=== PATIENT | female | born 1985 | race Two or more races ===

== ENCOUNTER 2019-01-20 22:07 | Emergency (ER) | payer OTHER ==
[~2019-01-20] VITALS: Ht 177.8 cm; Wt 71.7 kg
[2019-01-20] MEDS ORDERED: IBUP-1096 PO (22:18)
--- NOTE | 2019-01-20 22:20 | NUR ---
Patient walked into ER c/o throat itching and vaginal itching after having unprotected sex yesterday.
[2019-01-20] MEDS ORDERED: DOXYCYCLINE HYCLATE 100 MG TABLET ONE (22:42)
[2019-01-20] MEDS ORDERED: LIDOCAINE HCL 1% 20 ML VIAL ONE (22:42)
[2019-01-20] MEDS ORDERED: CEFTRIAXONE 1 G VIAL ONE (22:42)
[2019-01-20] MEDS ORDERED: DOXYCYCLINE HYCLATE 100 MG TABLET PO ONE (22:45)
[2019-01-20] MEDS ORDERED: CEFTRIAXONE 1 G VIAL IM ONE (22:45)
--- NOTE | 2019-01-20 22:54 | NUR ---
Patient discharged to home in stable conditon. Written and verbal after care instructions given. Patient verbalizes understanding of instructions. Walked out of ER with no distress noted
[2019-01-20 22:57] VITALS: BP 118/70
== END 2019-01-20 22:57 | disposition home or self-care (01) ==
LOC: ER 22:11
DX: J02.9 Acute pharyngitis, unspecified (principal); R05 Cough; N89.8 Other specified noninflammatory disorders of vagina; Z79.1 Long term (current) use of non-steroidal anti-inflammatories (NSAID)
CPT/HCPCS: 96372; 99283; J0696; J3490; A4663

== ENCOUNTER 2019-01-26 15:50 | Emergency (ER) | payer OTHER ==
[~2019-01-26] VITALS: Ht 177.8 cm; Wt 71.7 kg
[~2019-01-26 15:50] MED LIST: IBUP-1096 PO
[2019-01-26] MEDS ORDERED: AZITHROMYCIN 500 MG VIAL IV ONE (16:38)
[2019-01-26] MEDS ORDERED: CEFTRIAXONE 1 G VIAL ONE (16:39)
[2019-01-26] MEDS ORDERED: AZITHROMYCIN 250 MG TABLET ONE (16:39)
[2019-01-26] MEDS ORDERED: LIDOCAINE HCL 1% 20 ML VIAL ONE (16:42)
[2019-01-26] MEDS: AZITHROMYCIN 250 MG TABLET PO ONE (16:46)
[2019-01-26] MEDS: CEFTRIAXONE 1 G VIAL IM ONE (16:46)
--- NOTE | 2019-01-26 16:48 | NUR ---
PATIENT WAS SEEN BY MD. MEDICATION GIVEN ORDERED. DC AND FOLLOW UP INSTRUCTIONS GIVEN AND EXPLAINED TO PATIENT WHO STATES SHE UNDERSTANDS ALL INSTRUCTIONS.
== END 2019-01-26 16:54 | disposition home or self-care (01) ==
LOC: ER 15:50
DX: A64 Unspecified sexually transmitted disease (principal); J02.9 Acute pharyngitis, unspecified; Z79.1 Long term (current) use of non-steroidal anti-inflammatories (NSAID)
CPT/HCPCS: 96372; 99283; J0696; J3490; A4663; J0456; Q0144

== ENCOUNTER 2019-02-06 23:54 | Emergency (ER) | payer OTHER ==
[~2019-02-06] VITALS: Ht 177.8 cm; Wt 71.4 kg
[2019-02-07] MEDS ORDERED: AZITHROMYCIN 250 MG TABLET PO ONE (00:15)
[2019-02-07] MEDS ORDERED: CEFTRIAXONE 1 G VIAL IM ONE (00:15)
[2019-02-07] MEDS ORDERED: AZITHROMYCIN 250 MG TABLET ONE (00:25)
[2019-02-07] MEDS ORDERED: LIDOCAINE HCL 1% 20 ML VIAL ONE (00:25)
[2019-02-07] MEDS ORDERED: CEFTRIAXONE 1 G VIAL ONE (00:25)
[2019-02-07 00:49] VITALS: BP 118/78
--- NOTE | 2019-02-07 00:49 | NUR ---
Patient discharged to home in stable conditon. Written and verbal after care instructions given. Patient verbalizes understanding of instructions.
[2019-02-07 01:10] LABS: *BILIRUBIN,URIN NEGATIVE (NEGATIVE); *CLARITY,URINE SLIGHTLY CLOUDY (CLEAR); *COLOR,URINE YELLOW (YELLOW); *KETONES,URINE NEGATIVE (NEGATIVE); *UROBILINOGEN,URINE 0.2 E.U./dl (NORMAL); LEUKOCYTE ESTERASE ,URINE 1+ (NEGATIVE); NITRITE, URINE NEGATIVE (NEGATIVE); UGLUCOSE NEGATIVE (NEGATIVE)
[2019-02-07 01:12] LABS: *BLOOD, URINE TRACE (NEGATIVE)
[2019-02-07 01:37] LABS: *URINE HCG, QUAL NEGATIVE (NEGATIVE); BACTERIA,URINE NONE SEEN /HPF (NONE SEEN); RBC,URINE 0-3 /HPF (0-3); SQUAMOUS EPITHELIAL CELL,UR FEW /HPF (NONE SEEN)
== END 2019-02-07 01:47 | disposition home or self-care (01) ==
LOC: ER 23:59
DX: Z20.2 Contact with and (suspected) exposure to infections with a predominantly sexual mode of transmission (principal); Z79.1 Long term (current) use of non-steroidal anti-inflammatories (NSAID)
CPT/HCPCS: 81000; 81001; 84703; 87086; 96372; 99283; J0696; J3490; A4663; Q0144

== ENCOUNTER 2019-02-10 01:38 | Emergency (ER) | payer OTHER ==
[~2019-02-10] VITALS: Ht 177.8 cm; Wt 72.1 kg
[2019-02-10] MEDS ORDERED: CEFTRIAXONE 500 MG VIAL IM ONE (02:00)
[2019-02-10] MEDS ORDERED: AZITHROMYCIN 250 MG TABLET PO ONE (02:00)
[2019-02-10] MEDS ORDERED: AZITHROMYCIN 250 MG TABLET ONE (02:05)
[2019-02-10] MEDS ORDERED: CEFTRIAXONE 500 MG VIAL ONE (02:05)
[2019-02-10] MEDS ORDERED: LIDOCAINE HCL 1% 20 ML VIAL ONE (02:06)
[2019-02-10 02:23] LABS: *BILIRUBIN,URIN NEGATIVE (NEGATIVE); *BLOOD, URINE NEGATIVE (NEGATIVE); *CLARITY,URINE CLEAR (CLEAR); *COLOR,URINE YELLOW (YELLOW); *KETONES,URINE NEGATIVE (NEGATIVE); *UROBILINOGEN,URINE 0.2 E.U./dl (NORMAL); LEUKOCYTE ESTERASE ,URINE TRACE (NEGATIVE); NITRITE, URINE NEGATIVE (NEGATIVE); UGLUCOSE NEGATIVE (NEGATIVE)
[2019-02-10 02:28] LABS: *URINE HCG, QUAL NEGATIVE (NEGATIVE)
[2019-02-10 02:31] LABS: BACTERIA,URINE FEW /HPF (NONE SEEN); MUCUS,URINE FEW /LPF (0-FEW); RBC,URINE NONE SEEN /HPF (0-3); SQUAMOUS EPITHELIAL CELL,UR FEW /HPF (NONE SEEN)
[2019-02-10 02:46] VITALS: BP 115/76
--- NOTE | 2019-02-10 02:58 | NUR ---
Patient discharged to home in stable conditon. Written and verbal after care instructions given. Patient verbalizes understanding of instructions. WALKED OUT OF ER WITH NO DISTRESS NOTED
[2019-02-12 07:10] LABS: *GC NAA Negative (Negative); *TRIC.VAG. NAA Negative (Negative)
== END 2019-02-10 03:06 | disposition home or self-care (01) ==
LOC: ER 01:42
DX: Z20.2 Contact with and (suspected) exposure to infections with a predominantly sexual mode of transmission (principal); Z79.1 Long term (current) use of non-steroidal anti-inflammatories (NSAID)
CPT/HCPCS: 81000; 81001; 84703; 87491; 96372; 99283; J0696; J3490; A4663; Q0144

== ENCOUNTER 2019-04-09 15:26 | Emergency (ER) | payer OTHER ==
[~2019-04-09] VITALS: Ht 170.2 cm; Wt 52.6 kg
[2019-04-09 16:13] LABS: *URINE HCG, QUAL NEGATIVE (NEGATIVE)
--- NOTE | 2019-04-09 16:42 | NUR ---
PATIENT IS IN ROOM 5. PELVIC EXAM AND CULTURES DONE BY DR CLOES WITH ME AT BEDSIDE.
[2019-04-09] MEDS ORDERED: CEFTRIAXONE 500 MG VIAL IM ONE (17:00)
[2019-04-09] MEDS ORDERED: AZITHROMYCIN 250 MG TABLET PO ONE (17:00)
[2019-04-09] MEDS ORDERED: LIDOCAINE HCL 1% 20 ML VIAL ONE (17:15)
[2019-04-09] MEDS ORDERED: AZITHROMYCIN 250 MG TABLET ONE (17:15)
[2019-04-09] MEDS ORDERED: CEFTRIAXONE 500 MG VIAL ONE (17:16)
--- NOTE | 2019-04-09 17:17 | NUR ---
Medications given as ordered. DC, RX AND FOLLOW UP INSTRUCTIONS GIVEN AND EXPLAINED TO PATIENT WHO STATES SHE UNDERSTANDS ALL INSTRUCTIONS.
--- NOTE | 2019-04-09 17:17 | NUR ---
Rocephin 250 mg IM given as ordered by Dr. Miller, site: left glut.
== END 2019-04-09 17:20 | disposition home or self-care (01) ==
LOC: ER 15:31
DX: N89.8 Other specified noninflammatory disorders of vagina (principal); Z79.1 Long term (current) use of non-steroidal anti-inflammatories (NSAID)
CPT/HCPCS: 84703; 87070; 87081; 87110; 87210; 96372; 99283; J0696; J3490; A4663; Q0144

== ENCOUNTER 2019-09-01 13:14 | Emergency (ER) | payer OTHER ==
[~2019-09-01] VITALS: Ht 170.2 cm; Wt 76.2 kg
[2019-09-01 14:24] LABS: *BILIRUBIN,URIN NEGATIVE (NEGATIVE); *BLOOD, URINE NEGATIVE (NEGATIVE); *CLARITY,URINE CLEAR (CLEAR); *COLOR,URINE YELLOW (YELLOW); *KETONES,URINE 1+ (NEGATIVE); *UROBILINOGEN,URINE 0.2 E.U./dl (NORMAL); LEUKOCYTE ESTERASE ,URINE NEGATIVE (NEGATIVE); NITRITE, URINE NEGATIVE (NEGATIVE); UGLUCOSE NEGATIVE (NEGATIVE)
[2019-09-01 14:26] LABS: *URINE HCG, QUAL NEGATIVE (NEGATIVE)
[2019-09-01 14:28] LABS: BACTERIA,URINE FEW /HPF (NONE SEEN); RBC,URINE 0-3 /HPF (0-3); SQUAMOUS EPITHELIAL CELL,UR MODERATE /HPF (NONE SEEN); WBC,URINE 0-3 /HPF (0-3)
[2019-09-01] MEDS ORDERED: CEFTRIAXONE 500 MG VIAL IM ONE (14:30)
[2019-09-01] MEDS ORDERED: AZITHROMYCIN 250 MG TABLET PO ONE (14:30)
[2019-09-01] MEDS ORDERED: CEFTRIAXONE 500 MG VIAL ONE (14:48)
[2019-09-01] MEDS ORDERED: LIDOCAINE HCL 1% 20 ML VIAL ONE (14:48)
[2019-09-01] MEDS ORDERED: AZITHROMYCIN 250 MG TABLET ONE (14:51)
[2019-09-01] MEDS ORDERED: ALBUTEROL SULFATE 2.5 MG/3 ML NEBU ONE (15:03)
[2019-09-01] MEDS ORDERED: ALBUTEROL SULFATE 2.5 MG/3 ML NEBU NEB ONE (15:15)
--- NOTE | 2019-09-01 15:38 | NUR ---
Patient discharged to home in stable conditon. Written and verbal after care instructions given. Patient verbalizes understanding of instructions.
[2019-09-01 15:40] VITALS: BP 121/68
[2019-09-03 08:06] LABS: *GC NAA Negative (Negative); *TRIC.VAG. NAA Negative (Negative)
== END 2019-09-01 15:45 | disposition home or self-care (01) ==
LOC: ER 13:14
DX: Z20.2 Contact with and (suspected) exposure to infections with a predominantly sexual mode of transmission (principal); B34.9 Viral infection, unspecified; J45.909 Unspecified asthma, uncomplicated; Z79.1 Long term (current) use of non-steroidal anti-inflammatories (NSAID)
CPT/HCPCS: 71045; 81000; 81001; 84703; 87491; 93005; 94640; 96372; 99285; J0696; J3490; A4663; Q0144

== ENCOUNTER 2020-09-22 15:23 | Emergency (ER) | payer SELFPAY ==
[~2020-09-22] VITALS: Ht 177.8 cm; Wt 72.6 kg
--- NOTE | 2020-09-22 15:42 | NUR ---
at bedside for assessment
[2020-09-22] MEDS ORDERED: CEFTRIAXONE 500 MG VIAL IM ONE (16:00)
[2020-09-22] MEDS ORDERED: PENICILLIN G BENZATHINE 2.4 MMU/4 ML DISP.SYRIN IM ONE ×2 (16:00→16:09)
[2020-09-22] MEDS ORDERED: CEFTRIAXONE 500 MG VIAL ONE (16:09)
[2020-09-22] MEDS ORDERED: LIDOCAINE HCL 2% 20 ML VIAL ONE (16:10)
[2020-09-22 16:16] LABS: *URINE HCG, QUAL NEGATIVE (NEGATIVE)
[2020-09-22] MEDS ORDERED: FLUCONAZOLE 100 MG TABLET PO ONE (16:45)
[2020-09-22] MEDS ORDERED: FLUCONAZOLE 100 MG TABLET ONE (16:47)
[2020-09-22] MEDS ORDERED: DOXY100C41 PO (16:54)
--- NOTE | 2020-09-22 16:58 | NUR ---
Patient discharged to home in stable condition. no signs of acute distress noted, took all belongings. All needs met.Written and verbal after care instructions given. Patient verbalizes understanding of instructions. Stressed follow up or return to ER for worsening s/s.
[2020-09-24] MEDS ORDERED: LIDOCAINE HCL 1% 20 ML VIAL ONE (18:46)
[2020-09-24] MEDS ORDERED: CEFTRIAXONE 1 G VIAL ONE (18:46)
[2020-09-24] MEDS ORDERED: SULFAMETH/TRIMETH 800/160 MG TABLET ONE (18:47)
[2020-09-24 22:06] LABS: *GC NAA Negative (Negative); *TRIC.VAG. NAA Negative (Negative)
== END 2020-09-22 17:01 | disposition home or self-care (01) ==
LOC: ER 15:31
DX: N76.0 Acute vaginitis (principal); Z20.2 Contact with and (suspected) exposure to infections with a predominantly sexual mode of transmission; J45.909 Unspecified asthma, uncomplicated
CPT/HCPCS: 36415; 84703; 86592; 87491; 96372 ×2; 99284; J0696; J3490; A4663

== ENCOUNTER 2020-11-21 19:45 | Emergency (ER) | payer SELFPAY ==
[~2020-11-21] VITALS: Ht 177.8 cm; Wt 75.4 kg
[~2020-11-21 19:45] MED LIST changes: +DOXY100C41 PO
--- NOTE | 2020-11-21 21:00 | NUR ---
PATIENT STATES HER BOYFRIEND HAS AN STD AND STATES SHE HAS DYSURIA FOR 2 DAYS WITH NO DISCHARGE.
[2020-11-21 21:13] LABS: BASOPHILS % (AUTO) 0.4 % (0.0-2.0); EOSINOPHILS % (AUTO) 0.3 % (0.0-7.0); HEMATOCRIT 39.1 % (31.2-41.9); HEMOGLOBIN 13.1 g/dL (10.9-14.3); LYMPHOCYTES % (AUTO) 31.9 % (20.5-51.5); MEAN CORPUSCULAR HEMOGLOBIN 30.7 uug (24.7-32.8); MEAN CORPUSCULAR HGB CONC 33 g/dL (32.3-35.6); MEAN CORPUSCULAR VOLUME 91.8 fL (75.5-95.3); MONOCYTES # (AUTO) 0.7 K/uL (2.0-10.0); MONOCYTES % (AUTO) 11.6 % (0.0-11.0); NEUTROPHILS # (AUTO) 3.6 K/uL (1.8-8.9); NEUTROPHILS % (AUTO) 55.8 % (38.5-71.5); PLATELET COUNT (AUTO) 265 K/uL (179-408); RED BLOOD CELL COUNT(AUTO) 4.26 MIL/uL (3.63-4.92); WHITE BLOOD COUNT (AUTO) 6.4 K/uL (3.8-11.8)
[2020-11-21] MEDS ORDERED: PENICILLIN G BENZATHINE 2.4 MMU/4 ML DISP.SYRIN IM ONE ×2 (23:00→23:11)
--- NOTE | 2020-11-21 23:38 | NUR ---
Patient discharged to home in stable condition. Written and verbal after care instructions given. Patient verbalizes understanding of instructions. Stressed follow up or return to ER for worsening s/s.
[2020-11-21 23:39] VITALS: BP 128/72
== END 2020-11-21 23:40 | disposition home or self-care (01) ==
LOC: ER 19:45
DX: A64 Unspecified sexually transmitted disease (principal); N89.8 Other specified noninflammatory disorders of vagina; R21 Rash and other nonspecific skin eruption; J45.909 Unspecified asthma, uncomplicated
CPT/HCPCS: J0561 ×6; 85025; 86592; 87491; A4663

== ENCOUNTER 2021-04-09 04:07 | Emergency (ER) | payer OTHER ==
[~2021-04-09] VITALS: Ht 177.8 cm; Wt 77.1 kg
[~2021-04-09 04:07] MED LIST changes: +DOXY-326 PO; -DOXY100C41 PO
--- NOTE | 2021-04-09 04:49 | NUR ---
DR GRESHAM AT BEDSIDE FOR MSE.
--- NOTE | 2021-04-09 04:50 | NUR ---
Patient c/o dysuria, rash on right thigh and itchiness that started 3 days ago after having unprotected intercourse with partner.
[2021-04-09] MEDS ORDERED: CEFTRIAXONE 500 MG VIAL IM ONE (05:00)
[2021-04-09] MEDS ORDERED: DOXYCYCLINE HYCLATE 100 MG TABLET PO ONE (05:00)
[2021-04-09] MEDS ORDERED: DOXY-326 PO (05:05)
[2021-04-09] MEDS ORDERED: HYDR-500 GT (05:05)
[2021-04-09] MEDS ORDERED: CEFTRIAXONE 500 MG VIAL ONE (05:09)
[2021-04-09] MEDS ORDERED: DOXYCYCLINE HYCLATE 100 MG TABLET ONE (05:09)
[2021-04-09] MEDS ORDERED: LIDOCAINE HCL 1% 20 ML VIAL ONE (05:10)
--- NOTE | 2021-04-09 05:19 | NUR ---
Patient discharged to home in stable condition. Written and verbal after care instructions given. Patient verbalizes understanding of instructions. Stressed follow up or return to ER for worsening s/s. All belongings with patient.
[2021-04-09 05:28] VITALS: BP 118/64
== END 2021-04-09 05:20 | disposition home or self-care (01) ==
LOC: ER 04:13
DX: Z11.3 Encounter for screening for infections with a predominantly sexual mode of transmission (principal); Z20.2 Contact with and (suspected) exposure to infections with a predominantly sexual mode of transmission; J45.909 Unspecified asthma, uncomplicated
CPT/HCPCS: 96372; 99283; J0696; J3490; A4663

== ENCOUNTER 2021-04-14 05:07 | Emergency (ER) | payer OTHER ==
[~2021-04-14] VITALS: Ht 170.2 cm; Wt 82.6 kg
[~2021-04-14 05:07] MED LIST changes: +HYDR-500 GT
--- NOTE | 2021-04-14 05:19 | NUR ---
Dr. Rose at bedside for MSE.
[2021-04-14 06:00] LABS: *BILIRUBIN,URIN NEGATIVE (NEGATIVE); *BLOOD, URINE NEGATIVE (NEGATIVE); *CLARITY,URINE CLEAR (CLEAR); *COLOR,URINE YELLOW (YELLOW); *KETONES,URINE NEGATIVE (NEGATIVE); *UROBILINOGEN,URINE 0.2 E.U./dl (NORMAL); LEUKOCYTE ESTERASE ,URINE NEGATIVE (NEGATIVE); NITRITE, URINE NEGATIVE (NEGATIVE); PH,URINE 5.5 (5.0-8.0); UGLUCOSE NEGATIVE (NEGATIVE)
[2021-04-14] MEDS ORDERED: PENICILLIN G BENZATHINE 2.4 MMU/4 ML DISP.SYRIN IM ONE ×2 (06:00→06:04)
[2021-04-14] MEDS ORDERED: HYDR-3980 PO (06:19)
[2021-04-14 06:35] LABS: HEMATOCRIT 36.5 % (31.2-41.9); MEAN CORPUSCULAR HEMOGLOBIN 31.1 uug (24.7-32.8); MEAN CORPUSCULAR VOLUME 92.8 fL (75.5-95.3); PLATELET COUNT (AUTO) 275 K/uL (179-408)
--- NOTE | 2021-04-14 06:46 | NUR ---
Patient discharged to home in stable condition. Written and verbal after care instructions given. Patient verbalizes understanding of instructions. Stressed follow up or return to ER for worsening s/s. Pt walks with steady gait. No signs of distress. Vitals stable. All belongings taken with patient. Pt. refused to sign discharge paperwork.
[2021-04-14 06:48] VITALS: BP 110/56
--- NOTE | 2021-04-14 06:56 | NUR ---
I educated pt. to take prescription to pharmacy. While cleaning the room I found the patient's paper [facility] prescription in trash. Prescription moved to be in patients chart.
== END 2021-04-14 06:50 | disposition home or self-care (01) ==
LOC: ER 05:08
DX: R10.2 Pelvic and perineal pain (principal); Z20.2 Contact with and (suspected) exposure to infections with a predominantly sexual mode of transmission; Z72.51 High risk heterosexual behavior; J45.909 Unspecified asthma, uncomplicated
CPT/HCPCS: J0561 ×7; 85025; 86592; 87491; A4663

== ENCOUNTER 2021-06-15 02:18 | Emergency (ER) | payer OTHER ==
[~2021-06-15] VITALS: Ht 177.8 cm; Wt 79.1 kg
[~2021-06-15 02:18] MED LIST changes: +HYDR-3980 PO
[2021-06-15] MEDS ORDERED: CEFTRIAXONE 500 MG VIAL IM ONE (02:30)
[2021-06-15] MEDS ORDERED: PENICILLIN G BENZATHINE 2.4 MMU/4 ML DISP.SYRIN IM ONE ×2 (02:30→02:43)
[2021-06-15] MEDS ORDERED: AZITHROMYCIN 250 MG TABLET PO ONE (02:30)
[2021-06-15] MEDS ORDERED: AZITHROMYCIN 250 MG TABLET ONE (02:43)
[2021-06-15] MEDS ORDERED: CEFTRIAXONE 500 MG VIAL ONE (02:43)
[2021-06-15 02:58] VITALS: BP 128/72
== END 2021-06-15 03:00 | disposition home or self-care (01) ==
LOC: ER 02:22
DX: Z29.8 Encounter for other specified prophylactic measures (principal); Z77.21 Contact with and (suspected) exposure to potentially hazardous body fluids; J45.909 Unspecified asthma, uncomplicated
CPT/HCPCS: 96372 ×2; 99284; J0561; J0696; A4663; Q0144

== ENCOUNTER 2021-10-10 16:49 | Emergency (ER) | payer OTHER ==
[~2021-10-10] VITALS: Ht 177.8 cm; Wt 81.6 kg
--- NOTE | 2021-10-10 22:20 | NUR ---
PT PLACED IN ROOM 5A.
--- NOTE | 2021-10-10 22:22 | NUR ---
Dr. Rose at bedside, MSE in progress.
[2021-10-10 22:57] LABS: HEMATOCRIT 29.9 % (31.2-41.9); MEAN CORPUSCULAR HEMOGLOBIN 30.6 uug (24.7-32.8); MEAN CORPUSCULAR VOLUME 91.3 fL (75.5-95.3); PLATELET COUNT (AUTO) 263 K/uL (179-408)
[2021-10-10] MEDS ORDERED: FLUC150T PO (23:15)
[2021-10-10] MEDS ORDERED: PENICILLIN G BENZATHINE 2.4 MMU/4 ML DISP.SYRIN IM ONE (23:20)
[2021-10-10] MEDS ORDERED: CEFTRIAXONE 1 G VIAL ONE (23:21)
[2021-10-10] MEDS ORDERED: AZITHROMYCIN 250 MG TABLET ONE (23:22)
[2021-10-10] MEDS: PENICILLIN G BENZATHINE 2.4 MMU/4 ML DISP.SYRIN IM ONE (23:28)
[2021-10-10] MEDS: CEFTRIAXONE 1 G VIAL IM ONE (23:28)
[2021-10-10] MEDS: AZITHROMYCIN 250 MG TABLET PO ONE (23:28)
--- NOTE | 2021-10-10 23:49 | NUR ---
Patient discharged to home in stable condition. Written and verbal after care instructions given. Patient verbalizes understanding of instructions. Stressed follow up or return to ER for worsening s/s.pt ambulated with steady gait. denies pain. no sob. no chest pain. AOx4
[2021-10-11 00:13] VITALS: BP 121/60
== END 2021-10-10 23:55 | disposition home or self-care (01) ==
LOC: ER 16:50
DX: O98.312 Other infections with a predominantly sexual mode of transmission complicating pregnancy, second trimester (principal); Z3A.00 Weeks of gestation of pregnancy not specified; Z20.2 Contact with and (suspected) exposure to infections with a predominantly sexual mode of transmission; O99.512 Diseases of the respiratory system complicating pregnancy, second trimester; J45.909 Unspecified asthma, uncomplicated
CPT/HCPCS: 36415; 85025; 86592; 96372 ×2; 99284; J0561; J0696; J3490; A4663; Q0144

== ENCOUNTER 2021-10-12 14:38 | Emergency (ER) | payer OTHER ==
[~2021-10-12] VITALS: Ht 177.8 cm; Wt 81.6 kg
[~2021-10-12 14:38] MED LIST changes: +FLUC150T PO
--- NOTE | 2021-10-12 15:10 | NUR ---
Pt states she is approx 6 months (states LMP 03/24/21) and has not seen a OBGYN or had any care. spoke with the pt in length and offered transfer to a OBGYN facility (for higher level of care) but the patient refused. Patient also refused pelvic exam.
[2021-10-12 15:12] LABS: *BILIRUBIN,URIN 1+ (NEGATIVE); *BLOOD, URINE NEGATIVE (NEGATIVE); *CLARITY,URINE CLEAR (CLEAR); *COLOR,URINE YELLOW (YELLOW); *KETONES,URINE TRACE (NEGATIVE); LEUKOCYTE ESTERASE ,URINE NEGATIVE (NEGATIVE); NITRITE, URINE NEGATIVE (NEGATIVE); UGLUCOSE NEGATIVE (NEGATIVE)
--- NOTE | 2021-10-12 15:14 | NUR ---
Laura stated she was diagnosed with UTI 2 months ago and was prescribed antibiotics but she didnt finished taking the medication.
--- NOTE | 2021-10-12 15:15 | NUR ---
MD at bedside, medical screening exam in process.
--- NOTE | 2021-10-12 15:17 | NUR ---
UA collected and sent to lab.
--- NOTE | 2021-10-12 15:19 | NUR ---
Patient refused wet mount test, explained the risks and benefits of not performing the test.
[2021-10-12 15:28] LABS: HEMATOCRIT 30.4 % (31.2-41.9); MEAN CORPUSCULAR HEMOGLOBIN 30.8 uug (24.7-32.8); MEAN CORPUSCULAR VOLUME 91.6 fL (75.5-95.3); PLATELET COUNT (AUTO) 267 K/uL (179-408)
[2021-10-12 15:29] LABS: CARBON DIOXIDE 25 mmol/L (21-32); CHLORIDE 104 mmol/L (98-107); CREATININE 0.8 mg/dL (0.6-1.3); GLUCOSE 107 mg/dL (74-106); POTASSIUM 3.5 mmol/L (3.5-5.1); UREA NITROGEN, BLOOD 10 mg/dL (7-18)
[2021-10-12 15:34] LABS: *AMPHETAMINE, URINE NEGATIVE (NEGATIVE); *CANNABINOID, URINE NEGATIVE (NEGATIVE); *COCCAINE, URINE NEGATIVE (NEGATIVE); *OPIATE, URINE NEGATIVE (NEGATIVE); *PHENCYCLIDINE SCREEN,URINE NEGATIVE (NEGATIVE)
[2021-10-12 15:35] LABS: ALANINE AMINOTRANSFERASE 13 U/L (14-59); ALKALINE PHOSPHATASE 98 U/L (50-136); ASPARTATE AMINOTRANSFERASE 11 U/L (15-37); BILIRUBIN,DIRECT < 0.1 mg/dL (0.0-0.2); BILIRUBIN,TOTAL 0.2 mg/dL (0.2-1.0); TOTAL PROTEIN, SERUM 6.6 g/dL (6.4-8.2)
[2021-10-12] MEDS ORDERED: PERM60CR4 TP (15:54)
[2021-10-12] MEDS ORDERED: ACET-2154 PO (15:54)
[2021-10-12] MEDS ORDERED: CEPH500C2 PO (15:54)
[2021-10-12 16:03] VITALS: BP 121/80
--- NOTE | 2021-10-12 16:04 | NUR ---
Patient discharged to home in stable condition. Written and verbal after care instructions given. Patient verbalizes understanding of instructions. Stressed follow up or return to ER for worsening s/s. Re emphasized the importance of pre exam and completing the antibiotics as prescribed.
[2021-10-12 17:19] LABS: BACTERIA,URINE FEW /HPF (NONE SEEN); RBC,URINE 0-3 /HPF (0-3); SQUAMOUS EPITHELIAL CELL,UR FEW /HPF (NONE SEEN); URINE AMORPHOUS URATE MODERATE /HPF; WBC,URINE 0-3 /HPF (0-3); YEAST,URINE BUDDING YEAST /HPF (NONE SEEN)
== END 2021-10-12 16:06 | disposition home or self-care (01) ==
LOC: ER 14:38
DX: R30.0 Dysuria (principal); O99.019 Anemia complicating pregnancy, unspecified trimester; J45.909 Unspecified asthma, uncomplicated; D64.9 Anemia, unspecified
CPT/HCPCS: 36415; 85025; 87086; A4663

== ENCOUNTER 2022-02-06 16:07 | Emergency (ER) | payer MEDICAID, OTHER ==
[~2022-02-06] VITALS: Ht 167.6 cm; Wt 74.8 kg
[~2022-02-06 16:07] MED LIST changes: +ACET-2154 PO; +CEPH500C2 PO; +PERM60CR4 TP
--- NOTE | 2022-02-06 16:15 | NUR ---
Dr Noonan at the bedside for MSE.
[2022-02-06] MEDS ORDERED: PENICILLIN G BENZATHINE 2.4 MMU/4 ML DISP.SYRIN IM ONE (16:30)
[2022-02-06] MEDS ORDERED: ALBU18HF2 INH (17:04)
[2022-02-06 17:16] VITALS: BP 100/66
== END 2022-02-06 17:16 | disposition home or self-care (01) ==
LOC: ER 16:07
DX: Z20.2 Contact with and (suspected) exposure to infections with a predominantly sexual mode of transmission (principal); J45.909 Unspecified asthma, uncomplicated
CPT/HCPCS: 99283; 96372; J0561; A4663

== ENCOUNTER 2023-02-11 09:14 | Emergency (ER) | payer MEDICAID, OTHER ==
[~2023-02-11] VITALS: Ht 177.8 cm; Wt 74.8 kg
[2023-02-11 09:14] VITALS: O2SAT 100
[~2023-02-11 09:14] MED LIST changes: +ALBU18HF2 INH
[2023-02-11] MEDS ORDERED: PENICILLIN G BENZATHINE 2.4 MMU/4 ML DISP.SYRIN IM ONE ×2 (09:45→10:11)
[2023-02-11] MEDS ORDERED: IBUPROFEN 800 MG TABLET PO ONE (09:45)
[2023-02-11] MEDS ORDERED: ONDANSETRON ODT 4 MG TAB.RAPDIS SL ONE (09:45)
[2023-02-11] MEDS ORDERED: CEFTRIAXONE 500 MG VIAL IM ONE (09:45)
[2023-02-11] MEDS ORDERED: DOXY-226 PO (09:48)
[2023-02-11] MEDS ORDERED: CEFTRIAXONE 500 MG VIAL ONE (10:08)
[2023-02-11] MEDS ORDERED: ONDANSETRON ODT 4 MG TAB.RAPDIS ONE (10:09)
[2023-02-11] MEDS ORDERED: IBUPROFEN 800 MG TABLET ONE (10:09)
[2023-02-11] MEDS ORDERED: IBUP-1957 PO (10:11)
[2023-02-11] MEDS ORDERED: LIDOCAINE HCL 2% 20 ML VIAL ONE (10:14)
[2023-02-11] MEDS ORDERED: CLOT15CR27 TP (10:23)
--- NOTE | 2023-02-11 10:51 | NUR ---
Pt c/o sexual partner testing positive for Syphylis, gonorrhea, and chlamydia, afraid she has them too. States she feels sick, body aches, c/o rash on chest, n/v. Pt denies CP, SOB, dizziness, no other complaints, no distress noted.
--- NOTE | 2023-02-11 11:20 | NUR ---
Gave pt RX and d/c instructions, pt verbalized understanding.
== END 2023-02-11 11:25 | disposition home or self-care (01) ==
LOC: ER 09:14
DX: A64 Unspecified sexually transmitted disease (principal); J45.909 Unspecified asthma, uncomplicated; Z79.1 Long term (current) use of non-steroidal anti-inflammatories (NSAID); Z79.2 Long term (current) use of antibiotics; Z79.899 Other long term (current) drug therapy
CPT/HCPCS: 99284; 96372 ×2; J0561; J0696; J3490; A4663; Q0162

== ENCOUNTER 2023-02-18 07:18 | Emergency (ER) | payer MEDICAID ==
[~2023-02-18] VITALS: Ht 177.8 cm; Wt 74.8 kg
[~2023-02-18 07:18] MED LIST changes: +CLOT15CR27 TP; +DOXY-226 PO; +IBUP-1957 PO
[2023-02-18 07:35] VITALS: BP 124/81; O2SAT 98
== END 2023-02-18 07:45 | disposition home or self-care (01) ==
LOC: ER 07:18
DX: Z00.00 Encounter for general adult medical examination without abnormal findings (principal); J45.909 Unspecified asthma, uncomplicated; Z79.1 Long term (current) use of non-steroidal anti-inflammatories (NSAID); Z79.2 Long term (current) use of antibiotics; Z79.899 Other long term (current) drug therapy
CPT/HCPCS: A4663

== ENCOUNTER 2023-09-04 00:52 | Emergency (ER) | payer MEDICAID ==
[~2023-09-04] VITALS: Ht 177.8 cm; Wt 78.2 kg
[2023-09-04] MEDS ORDERED: LIDOCAINE HCL 1% 20 ML VIAL ONE (02:35)
[2023-09-04] MEDS ORDERED: CEFTRIAXONE 500 MG VIAL ONE (02:35)
[2023-09-04] MEDS: CEFTRIAXONE 500 MG VIAL IM ONE (02:48)
[2023-09-04 03:08] LABS: *BILIRUBIN,URIN NEGATIVE (NEGATIVE); *BLOOD, URINE NEGATIVE (NEGATIVE); *CLARITY,URINE CLEAR (CLEAR); *COLOR,URINE YELLOW (YELLOW); *KETONES,URINE NEGATIVE (NEGATIVE); *PROTEIN,URINE NEGATIVE (NEGATIVE); NITRITE, URINE NEGATIVE (NEGATIVE); PH,URINE 5.5 (5.0-8.0); UGLUCOSE NEGATIVE (NEGATIVE)
[2023-09-04 03:10] LABS: LEUKOCYTE ESTERASE ,URINE NEGATIVE (NEGATIVE)
[2023-09-04] MEDS ORDERED: DOXY-326 PO (03:13)
[2023-09-04] MEDS ORDERED: METR500T PO (03:13)
[2023-09-04] MEDS ORDERED: FLUCONAZOLE 100 MG TABLET ONE (03:21)
[2023-09-04] MEDS ORDERED: PENICILLIN G BENZATHINE 2.4 MMU/4 ML DISP.SYRIN IM ONE (03:22)
[2023-09-04] MEDS: FLUCONAZOLE 100 MG TABLET PO ONE (03:23)
[2023-09-04] MEDS: PENICILLIN G BENZATHINE 2.4 MMU/4 ML DISP.SYRIN IM ONE (03:27)
[2023-09-04 04:21] VITALS: BP 125/50; TEMP 97.9; O2SAT 98
[2023-09-07 22:06] LABS: *TRIC.VAG. NAA Negative (Negative)
[2023-09-07 23:09] LABS: *CHLAMYDIA NAA Negative (Negative); *GC NAA Negative (Negative)
== END 2023-09-04 04:22 | disposition home or self-care (01) ==
LOC: ER 00:57
DX: N76.0 Acute vaginitis (principal); J45.909 Unspecified asthma, uncomplicated; Z79.899 Other long term (current) drug therapy; Z60.2 Problems related to living alone
CPT/HCPCS: 99284; 86592; 81003; 36415; 96372 ×2; 87491; J0561; J0696; J3490; A4606; A4663

== ENCOUNTER 2024-04-12 09:09 | Emergency (ER) | payer MEDICAID ==
[~2024-04-12] VITALS: Ht 177.8 cm; Wt 79.4 kg
[~2024-04-12 09:09] MED LIST changes: +METR500T PO
[2024-04-12 10:41] LABS: HIV-1 p24 ANTIGEN NON REACTIVE (NONREACTIVE); HIV-1/2 ANTIBODY NON REACTIVE (NONREACTIVE)
[2024-04-12] MEDS ORDERED: CEFTRIAXONE 500 MG VIAL ONE (11:32)
[2024-04-12] MEDS ORDERED: PENICILLIN G BENZATHINE 2.4 MMU/4 ML DISP.SYRIN IM ONE (11:32)
[2024-04-12] MEDS ORDERED: LIDOCAINE HCL 1% 20 ML VIAL ONE (11:35)
[2024-04-12] MEDS ORDERED: IBUP-1955 PO (11:48)
[2024-04-12] MEDS ORDERED: DOXY100C5 PO (11:48)
[2024-04-12] MEDS: CEFTRIAXONE 500 MG VIAL IM ONE (12:03)
[2024-04-12] MEDS: PENICILLIN G BENZATHINE 2.4 MMU/4 ML DISP.SYRIN IM ONE (12:03)
[2024-04-12 12:09] VITALS: BP 100/68; TEMP 97.8; O2SAT 98
[2024-04-14 16:06] LABS: *CHLAMYDIA NAA Negative (Negative); *GC NAA Negative (Negative); *TRIC.VAG. NAA Negative (Negative)
== END 2024-04-12 12:11 | disposition home or self-care (01) ==
LOC: ER 09:09
DX: A64 Unspecified sexually transmitted disease (principal); M79.672 Pain in left foot; J45.909 Unspecified asthma, uncomplicated; Z79.1 Long term (current) use of non-steroidal anti-inflammatories (NSAID); Z79.52 Long term (current) use of systemic steroids; Z79.899 Other long term (current) drug therapy; Z98.890 Other specified postprocedural states; Z60.2 Problems related to living alone
CPT/HCPCS: 99284; 86592; 87806; 36415; 73610; 73630; 96372 ×2; 87491; J0561; J0696; J3490; A4606; A4663